=== PATIENT | female | born 1985 ===

== ENCOUNTER 2023-11-20 14:51 | Outpatient (CLI) | payer BC, SELFPAY ==
--- NOTE | ~2023-11-20 | US_ITS ---
EXAMINATION: US thyroid DATE: 11/20/2023 15:09 INDICATION: Jared's thyroiditis. TECHNIQUE: Multiple ultrasound images of the thyroid were obtained. COMPARISON: None. FINDINGS: The right thyroid lobe measures 5.8 x 1.6 x 1.5 cm. The left thyroid lobe measures 5.4 x 1.7 x 1.4 c m. In the left thyroid lobe, there is 5 mm solid, very hypoechoic, wider than tall nodule with keon h margin without echogenic foci (TI-RADS TR4). In the right thyroid lobe, there is a 3 mm nodule. IMPRESSION: 1. Small thyroid nodules, likely not clinically significant. No follow-up is needed. Reviewed, dictated and finalized at location A. IMPRESSION: 1. Small thyroid nodules, likely not clinically significant. No follow-up is ne eded.
== END 2023-11-20 14:52 | disposition home or self-care (01) ==
LOC: MICIMG 14:54
PROVIDERS: PCP Internal Medicine Medical Oncology; Visit Provider Emergency Medicine
DX: E04.1 Nontoxic single thyroid nodule (principal); E06.3 Autoimmune thyroiditis
CPT/HCPCS: 76536